=== PATIENT | male | born 1990 | race Asian ===

== ENCOUNTER 2020-03-13 19:46 | Emergency (ER) | payer OTHER, SELFPAY ==
[~2020-03-13] VITALS: Ht 162.6 cm; Wt 72.6 kg
[2020-03-13 19:48] VITALS: Ht 162.6 cm; Wt 72.6 kg
[2020-03-13 21:14] VITALS: BP 128/87
== END 2020-03-13 21:14 | disposition home or self-care (01) ==
LOC: ED 19:46
DX: R51 Headache (principal); Z20.828 Contact with and (suspected) exposure to other viral communicable diseases
CPT/HCPCS: U0003-CS